=== PATIENT | female | born 1955 | race Caucasian/White ===

== ENCOUNTER 2019-07-13 11:33 | Observation (INO) ==
[~2019-07-13 11:33] MED LIST: LIDOCAINE W/ SODIUM BICARB 0.5 ML SYR ONE; LIDOCAINE W/ SODIUM BICARB 0.5 ML SYR SUBD PRN; Lactated Ringers 1,000 ML PRIMARY IV ONE; Nasal Sanitizer POPSWAB ampule 3 AMP (Nozin) PREOP DOSE ENOS SCH; ceFAZolin Inj 2gm (Premix) 0 GM/0 ML BAG IV ONE; ceFAZolin Inj 2gm (Premix) 2 GM/50 ML BAG IV ONE
[2019-07-13] MEDS ORDERED: Clindamycin 900mg (Premix) 900 MG/50 ML BAG IV ONE ×2 (12:16→12:43)
[2019-07-13] MEDS: Lactated Ringers 1,000 ML PRIMARY IV SCH ×2 (12:47→19:05)
[2019-07-13 13:03] LABS: BASOPHILS # (AUTO) 0.02 10*3/UL; BASOPHILS % (AUTO) 0.4 % (0-1); EOSINOPHILS # (AUTO) 0.12 10*3/UL; EOSINOPHILS % (AUTO) 2.2 % (0-8); Hematocrit [HCT] 35.6 % (37.0-47.0); Hemoglobin [HGB] 11.4 g/dL (12.0-16.0); MEAN CORPUSCULAR VOLUME 89.9 FL (81-99); MEAN PLATELET VOLUME 9.2 FL (7.4-12.2); MONOCYTES # (AUTO) 0.48 10*3/UL (0.3-0.8); MONOCYTES % (AUTO) 8.8 % (5-15); NEUTROPHILS % (AUTO) 68.1 % (50-80); RED BLOOD COUNT 3.96 10^6/uL (4.20-5.40)
[2019-07-13 13:06] LABS: PLATELET MORPHOLOGY COMMENT NORMAL MORPHOLOGY (NORM); RBC MORPHOLOGY COMMENT NORMAL MORPHOLOGY (NORM); WBC MORPHOLOGY COMMENT NORMAL MORPHOLOGY (NORM)
[2019-07-13 13:19] LABS: BLOOD UREA NITROGEN 20 mg/dL (7-22); BUN/CREATININE RATIO 28.57 (6-20)
[2019-07-13] MEDS ORDERED: MIDAZOLAM 5 MG/1 ML ONE (13:27)
[2019-07-13] MEDS ORDERED: BUPivacaine Inj 0.5% PF (5mg/ml) 10ml vial ONE ×2 (13:28→15:57)
[2019-07-13] MEDS ORDERED: BUPivacaine Liposome/PF (Exparel) Inj 20ml vial INFIL ONE ×2 (13:28→15:57)
[2019-07-13] MEDS ORDERED: fentaNYL Inj 250 MCG/5 ML VIAL ONE (13:28)
[2019-07-13] MEDS ORDERED: LIDOCAINE MPF 2% - 5 ML (20 MG/1 ML) ONE (13:42)
[2019-07-13] MEDS ORDERED: PROPOFOL 10 MG/1 ML (200 MG/20 ML) VIAL IV ONE (13:42)
[2019-07-13] MEDS ORDERED: ONDANSETRON 4 MG/2 ML VIAL IVP PRN ×2 (16:53→17:51)
[2019-07-13] MEDS ORDERED: LIDOCAINE W/ SODIUM BICARB 0.5 ML SYR SUBD PRN (16:53)
[2019-07-13] MEDS ORDERED: HYDROmorphone 2 MG/1 ML ONE (16:55)
[2019-07-13] MEDS: HYDROmorphone 2 MG/1 ML IVP PRN ×3 (16:56→17:26)
[2019-07-13] MEDS ORDERED: Lactated Ringers 1,000 ML PRIMARY IV ONE (17:11)
[2019-07-13] MEDS ORDERED: MORPHINE SULFATE 2 MG/1 ML IVP PRN ×2 (17:51→18:45)
[2019-07-13] MEDS ORDERED: Prochlorperazine Tab 10 MG TAB PO PRN (17:51)
[2019-07-13] MEDS ORDERED: BISACODYL 5 MG TABLET PO PRN (17:51)
[2019-07-13] MEDS ORDERED: MAG HYDROX/AL HYDROX/SIMETH 30 ML SUSP PO PRN (17:51)
[2019-07-13] MEDS ORDERED: Ondansetron ODT Tab 8 MG TAB PO PRN (17:51)
[2019-07-13] MEDS ORDERED: ACETAMINOPHEN 325 MG TABLET PO PRN (17:51)
[2019-07-13] MEDS ORDERED: diphenhydrAMINE 25 MG CAPSULE PO PRN (17:51)
[2019-07-13] MEDS ORDERED: CALCIUM CARBONATE 500 MG (TUMS) CHEWABLE TABLET PO PRN (17:51)
[2019-07-13] MEDS ORDERED: BISACODYL 10 MG SUPPOSITORY RECTAL PRN (17:51)
[2019-07-13] MEDS ORDERED: CELECOXIB 200 MG CAPSULE PO PRN (17:51)
[2019-07-13] MEDS ORDERED: Pneumococcal Vacc 13 Syringe 0.5 ML DISP.SYRIN IM ONE (18:07)
[2019-07-13] MEDS ORDERED: MORPHINE SULFATE 4 MG/1 ML IVP PRN (18:35)
[2019-07-13] MEDS: oxyCODONE/APAP 7.5/325 Tab 1 TAB TAB PO PRN ×2 (19:11→23:30)
[2019-07-13] MEDS: D5-1/2NS + 20mEq KCL 1,000 ML PRIMARY IV SCH (19:12)
[2019-07-13] MEDS: Clindamycin 900mg (Premix) 900 MG/50 ML BAG IV SCH (20:23)
[2019-07-13] MEDS: CALCIUM CARBONATE 500 MG (TUMS) CHEWABLE TABLET PO SCH (20:23)
[2019-07-14] MEDS: Clindamycin 900mg (Premix) 900 MG/50 ML BAG IV SCH ×2 (02:46→08:40)
[2019-07-14] MEDS: oxyCODONE/APAP 7.5/325 Tab 1 TAB TAB PO PRN ×2 (04:31→10:49)
[2019-07-14 05:28] LABS: BASOPHILS # (AUTO) 0.02 10*3/UL; BASOPHILS % (AUTO) 0.2 % (0-1); EOSINOPHILS # (AUTO) 0 10*3/UL; EOSINOPHILS % (AUTO) 0 % (0-8); Hematocrit [HCT] 31.4 % (37.0-47.0); Hemoglobin [HGB] 10.1 g/dL (12.0-16.0); LYMPHOCYTES # (AUTO) 0.58 10*3/uL; MEAN CORPUSCULAR HGB CONC 32.2 g/dL (33-37); MEAN PLATELET VOLUME 10.3 FL (7.4-12.2); MONOCYTES # (AUTO) 0.84 10*3/UL (0.3-0.8); MONOCYTES % (AUTO) 10.2 % (5-15); NEUTROPHILS # (AUTO) 6.76 10*3/UL; NEUTROPHILS % (AUTO) 82.3 % (50-80); RED BLOOD COUNT 3.49 10^6/uL (4.20-5.40)
[2019-07-14 05:34] LABS: BLOOD UREA NITROGEN 18 mg/dL (7-22); BUN/CREATININE RATIO 25.71 (6-20)
[2019-07-14 05:42] LABS: PLATELET MORPHOLOGY COMMENT NORMAL MORPHOLOGY (NORM); RBC MORPHOLOGY COMMENT NORMAL MORPHOLOGY (NORM); WBC MORPHOLOGY COMMENT NORMAL MORPHOLOGY (NORM)
[2019-07-14 08:38] VITALS: BP 105/66; RESP 20; TEMP 97.3; O2SAT 98
[2019-07-14] MEDS: CALCIUM CARBONATE 500 MG (TUMS) CHEWABLE TABLET PO SCH (08:40)
[2019-07-14] MEDS ORDERED: CHOLECALCIFEROL (VITAMIN D3) 5,000 IU CAPSULE PO SCH (09:00)
[2019-07-14] MEDS ORDERED: Ondansetron ODT Tab 4 MG TAB PO ONE (09:59)
[2019-07-14] MEDS: D5-1/2NS + 20mEq KCL 1,000 ML PRIMARY IV SCH (10:50)
== END 2019-07-14 12:17 | disposition home or self-care (01) ==
LOC: MED/SURG 11:33 → OR 11:33 → MED/SURG 17:35
PROVIDERS: ADMIT Orthopaedic Surgery; ATTEND Orthopaedic Surgery